=== PATIENT | female | born 1950 | race Caucasian/White ===

== ENCOUNTER → 2018-12-01 | Outpatient (CLI) | payer OTHER ==
[~2018-12-01] MED LIST: AMBIEN 10 MG TA10 MG; ARTHRITIS MED; CIPROFLOXACIN500 M1 PO; GOLYTELY4000 M1 GT; PERCOCET 5-3251 EACH PO; PHENERGAN25 M2 RC; PROZAC 20 MG20 M1; VESICARE 5 MG TA5 M1 PO; WELLBUTRIN XL150 M1
== END ==
LOC: M.RAD 10:52
DX: Z12.31 Encounter for screening mammogram for malignant neoplasm of breast (principal)